=== PATIENT | female | born 1995 | race African-American/Black ===

== ENCOUNTER 2024-06-15 09:25 | Day surgery (SDC) | payer OTHER ==
[2024-06-14 08:58] VITALS: BMI 32.8
[2024-06-15] MEDS: ceFAZolin SODIUM 1 GM VIAL IVPB ONE (08:20)
[~2024-06-15 09:25] MED LIST: ACETAMINOPHEN INJECTION 100 ML IVPB ONE; DEXAMETHASONE SOD PHOSPHATE 4 MG/1 ML VIAL ONE; GLYCOPYRROLATE 0.2 MG/1 ML VIAL ONE; LACTATED RINGERS SOLUTION 1,000 ML IV SCH; LIDOCAINE 1%/EPI 1:100000 (20 ML MULTI DOSE VIAL) ONE; LIDOCAINE HCL/PF 2% SDV 5ML VIAL ONE; MIDAZOLAM HCL 2 MG/2 ML SINGLE DOSE VIAL ONE; NEOSTIGMINE METHYLSULFATE 0.5 MG/1 ML - 10 ML MDV ONE; ONDANSETRON 4 MG/2 ML VIAL IVPUSH PRN; ONDANSETRON 4 MG/2 ML VIAL ONE; PROPOFOL 40 ML ONE; ROCURONIUM BROMIDE 50 MG/5 ML SYRINGE ONE; SEVOFLURANE 250 ML BTL ONE; ceFAZolin SODIUM 1 GM VIAL ONE; oxyCODONE HCL 5 MG TABLET PO PRN
[2024-06-15] MEDS: LIDOCAINE 1%/EPI 1:100000 (20 ML MULTI DOSE VIAL) INF ONE (09:30)
[2024-06-15 13:06] VITALS: RESP 18; TEMP 97.5
[2024-06-15 16:41] VITALS: BP 121/84; PULSE 65
== END 2024-06-15 13:58 | disposition home or self-care (01) ==
LOC: JASU-SURG 09:25 → MERGE 13:00 → JASU-SURG 13:58
PROVIDERS: ATTEND Otolaryngology
PROC: 8E09XBZ Computer Assisted Procedure of Head and Neck Region (ICD-10-PCS; 2024-06-15)
PROC: 09BM8ZZ Excision of Nasal Septum, Via Natural or Artificial Opening Endoscopic (ICD-10-PCS; 2024-06-15)
PROC: 8E09XBZ Computer Assisted Procedure of Head and Neck Region (ICD-10-PCS; 2024-06-15)
PROC: 09TU8ZZ Resection of Right Ethmoid Sinus, Via Natural or Artificial Opening Endoscopic (ICD-10-PCS; principal; 2024-06-15 08:00)
DX: J32.4 Chronic pansinusitis (principal); J34.2 Deviated nasal septum; J34.3 Hypertrophy of nasal turbinates
CPT/HCPCS: 81025; 87070; 87075; 87102; 87186; 87205; 87210; 88304-TC; 88311-TC; 94760; J0131